=== PATIENT | male | born 1990 | race Caucasian/White ===

== ENCOUNTER 2018-11-23 11:12 | Emergency (ER) | payer OTHER ==
[~2018-11-23] VITALS: Ht 177.8 cm; Wt 87.1 kg
[2018-11-23 11:29] VITALS: BP 119/72
--- NOTE | 2018-11-23 11:36 | NUR ---
PT AMBULATED TO BED 1. REPORT GIVEN TO RUPERTO ESPINOZA.
--- NOTE | 2018-11-23 11:40 | NUR ---
BIB SELF. AAOX4. C/O PAIN TO R RIB AREA AND BILATERAL HIPS. PT STATES SHARP PAIN UPON BREATHING 5/10 TO R RIB, PAIN 5/10 TO BILATERAL HIPS. DISCOLORATION NOTED TO BILATERAL HIPS. PT HAS STEADY GAIT. EQUAL MAEGAN STRENGTH TO UPPER AND LOWER EXTREMITIES. FULL ROM TO UPPER AND LOWER EXTREMITIES. HOB UP. BED SIDE RAILS UP X1. ON LOW BED POSITION, LOCKED. ER MADE AWARE OF PT STATUS
--- NOTE | 2018-11-23 12:24 | NUR ---
DR BROWN AT BEDSIDE FOR PT EVALUATION
--- NOTE | 2018-11-23 12:44 | NUR ---
Patient taken to CT scan via wheelchair by tech.
[2018-11-23 14:12] VITALS: BP 116/72
== END 2018-11-23 14:12 | disposition home or self-care (01) ==
LOC: MED 11:12
DX: R07.89 Other chest pain (principal); R07.81 Pleurodynia; W19.XXXA Unspecified fall, initial encounter; Y93.89 Activity, other specified; Y92.89 Other specified places as the place of occurrence of the external cause; Y99.8 Other external cause status
CPT/HCPCS: 71250; 99284